=== PATIENT | male | born 1945 | race African-American/Black ===

== ENCOUNTER → 2016-12-05 | Outpatient (CLI) | payer MEDICARE, OTHER ==
[~2016-12-05] MED LIST: CARB1TAB2 PO; CHOL100013 PO; FURO-69 PO; METF500T4 PO; POTA10TA PO; TEST200V3 IM; TRAM50TA PO; TRIA1CAP3 PO
[2016-12-05 09:04] LABS: BILIRUBIN,URINE NEGATIVE (NEG); GLUCOSE,URINE NEGATIVE (NEG); NITRITE,URINE NEGATIVE (NEG); PH,URINE 5.5; PROTEIN,URINE NEGATIVE (NEG-TRACE); UROBILINOGEN,URINE 0.2 mg/dL (0.2 mg/dL)
[2016-12-05 09:25] LABS: BASO % 1 % (0-3); EOS % 1 % (0-3); HEMATOCRIT 36.9 % (39.0-53.0); HEMOGLOBIN 12.2 g/dL (13.0-17.5); LYMPH # 0.9 x10^3/uL (1.0-4.8); LYMPH % 21 % (24-48); MEAN CORPUSCULAR HEMOGLOBIN 27 pg (25-35); MEAN CORPUSCULAR HGB CONC 33 g/dL (31-37); MEAN CORPUSCULAR VOLUME 83 fL (79-100); MONO % 8 % (0-9); NEUT % 69 % (31-73); PLATELET COUNT 228 x10^3/uL (140-400); RED BLOOD COUNT 4.44 x10^6/uL (4.30-5.70); RED CELL DISTRIBUTION WIDTH 16.6 % (11.5-14.5); WHITE BLOOD COUNT 4.3 x10^3/uL (4.0-11.0)
[2016-12-05 09:28] LABS: BACTERIA,URINE FEW /HPF (0-FEW); SQUAMOUS EPITHELIAL CELL,UR OCC /LPF
[2016-12-05 09:34] LABS: ALBUMIN 3.7 g/dL (3.4-5.0); CALCIUM 9.4 mg/dL (8.5-10.1); CREATININE 1.2 mg/dL (0.7-1.3); GFR 71.8; POTASSIUM 4.3 mmol/L (3.5-5.1)
[2016-12-05 09:41] LABS: PROTHROMBIN TIME PATIENT 12.8 SEC (11.7-14.0)
--- NOTE | 2016-12-05 13:02 | EKG ---
[facility] [address] [place] [address] Test Date: 2016-12-05 Test Time: 12:59:43 Pat Name: SHANA FARRELL Department: Room: Gender: M Crisis Nurse: LORA : 1945 Requested By: ERAN THURSTON Order Number: [id number] Reading MD: Stephie Jones Measurements Intervals [place] Rate: 81 P: 90 ID: 160 QRS: 15 QRSD: 72 T: 34 QT: 348 QTc: 405 Interpretive Statements SINUS RHYTHM NORMAL ECG RI6.01 No previous ECG available for comparison Electronically Signed On 12-06-2016 20:17:13 CDT by Stephie Jones
--- NOTE | 2016-12-05 15:36 | RAD ---
Indication preop. Frontal and lateral views of the chest were obtained. No prior imaging of the chest is available. The heart and pulmonary vessels appear normal. The mediastinum has a normal appearance. The lungs are clear. IMPRESSION: No acute or significant finding in the chest
== END | disposition home or self-care (01) ==
LOC: SURGPAT 14:23
PROVIDERS: ATTEND Orthopaedic Surgery Sports Medicine
DX: Z01.818 Encounter for other preprocedural examination (principal); I10 Essential (primary) hypertension; R07.9 Chest pain, unspecified
CPT/HCPCS: 36415; 71020; 80048; 81001; 82040; 83036; 85025; 85610; 85651; 85730; 87086; 87641; 93005

== ENCOUNTER 2016-12-19 05:44 | Inpatient (IN) | payer MEDICARE, OTHER ==
[2016-12-19] VITALS (9 sets, daily range): BP systolic 108–131; BP diastolic 66–75
[~2016-12-19] VITALS: Ht 177.8 cm; Wt 72.6 kg
[2016-12-19] MEDS ORDERED: MORPHINE SULFATE 5 MG, KETOROLAC 30 MG, ROPIVacaine 0.5% PF 60 ML, EPINEPHrine 0.5 MG i... INT ART ONE ×5 (06:00)
[2016-12-19] MEDS ORDERED: TRANEXAMIC ACID 1,000 MG in IV NORMAL SALINE 50ML 50 ML INJ ONE ×2 (06:00→08:00)
[2016-12-19] MEDS ORDERED: BACITRACIN 50,000 UNIT in IV NORMAL SALINE 1000ML BAG 1,000 ML IRR ONE (06:00)
[2016-12-19] MEDS ORDERED: ceFAZolin 2GM PREMIX 2 GM/50 ML BAG IV ONE (06:30)
[2016-12-19] MEDS ORDERED: HYDROcodone/APAP 7.5/325MG 1 TAB TABLET PO ONE (07:00)
[2016-12-19] MEDS ORDERED: MELOXICAM 7.5 MG TABLET PO ONE (07:00)
[2016-12-19] MEDS ORDERED: fentaNYL PF VIAL 100 MCG/2 ML VIAL ONE (07:17)
[2016-12-19] MEDS ORDERED: ROCURONIUM 100 MG/10 ML VIAL. ONE (07:17)
[2016-12-19] MEDS: IV RINGERS,LACTATED 1000ML 1,000 ML IV SCH ×2 (07:20→10:13)
[2016-12-19] MEDS ORDERED: MIDAZOLAM HCL/PF 2 MG/2 ML VIAL. IV PRN (07:30)
[2016-12-19] MEDS ORDERED: fentaNYL PF VIAL 100 MCG/2 ML VIAL IV PRN ×3 (07:30→07:45)
[2016-12-19] MEDS ORDERED: LIDOCAINE 1% PF 2 ML VIAL. ID PRN (07:30)
[2016-12-19] MEDS: IV DEXTROSE 5 %-0.45 % NACL 1,000 ML IV SCH ×2 (07:32→21:15)
--- NOTE | 2016-12-19 07:38 | PDOC ---
BRIEF OPERATIVE NOTE Date: Dec 19, 2016 Pre-Op Diagnosis L hip DJD Post-Op Diagnosis same Procedure Performed L GREGORY Surgeon Joselin Ornamental Iron Worker Jason Anesthesiologist Alcides Anesthesia Type: General, Local Blood Loss 250mL Complications none ERAN THURSTON II, MD Dec 19, 2016 07:38
[2016-12-19 07:44] LABS: PROTHROMBIN TIME PATIENT 12.9 SEC (11.7-14.0)
[2016-12-19] MEDS ORDERED: ZOLPIDEM 5 MG TABLET. PO PRN (07:45)
[2016-12-19] MEDS ORDERED: PROCHLORPERAZINE 10 MG/2 ML VIAL. IV PRN (07:45)
[2016-12-19] MEDS ORDERED: MORPHINE SULFATE 4 MG/ML DISP.SYRIN. IV PRN ×2 (07:45)
[2016-12-19] MEDS ORDERED: 0.9 % SODIUM CHLORIDE 10 ML DISP.SYRIN. IV PRN (07:45)
[2016-12-19] MEDS ORDERED: HYDROcodone/APAP 10/325 1 TAB TABLET PO PRN (07:45)
[2016-12-19] MEDS ORDERED: METOCLOPRAMIDE HCL 10 MG/2 ML VIAL. IV PRN (07:45)
[2016-12-19] MEDS ORDERED: diphenhydrAMINE 50 MG/ML VIAL IV PRN (07:45)
[2016-12-19] MEDS ORDERED: MORPHINE SULFATE 10 MG/ML VIAL. IV PRN (07:45)
[2016-12-19] MEDS ORDERED: traMADol 50 MG TABLET PO PRN ×2 (07:45)
[2016-12-19] MEDS ORDERED: oxyCODONE/APAP 7.5/325 1 TAB TABLET PO PRN (07:45)
[2016-12-19] MEDS ORDERED: MORPHINE SULFATE 2 MG/ML DISP.SYRIN. IV PRN (07:45)
[2016-12-19] MEDS ORDERED: DEXTROSE 50% 25 GM / 50ML DISP.SYRIN. IV PRN (07:45)
[2016-12-19] MEDS ORDERED: PROCHLORPERAZINE 5 MG TABLET. PO PRN (07:45)
[2016-12-19] MEDS ORDERED: ACETAMINOPHEN 325 MG TABLET. PO PRN (07:45)
[2016-12-19] MEDS ORDERED: CALCIUM CARBONATE 500 MG TAB.CHEW PO PRN (07:45)
[2016-12-19] MEDS: INSULIN ASPART 300 UNITS/3 ML INSULN.PEN SQ SCH ×3 (08:00→16:54)
[2016-12-19] MEDS: FERROUS SULFATE 325 MG TABLET. PO SCH ×2 (08:00→16:53)
[2016-12-19] MEDS ORDERED: GLYCOPYRROLATE 1 MG/5 ML VIAL. ONE (08:00)
[2016-12-19] MEDS ORDERED: NEOSTIGMINE METHYLSULFATE 5 MG/5 ML SYRINGE. ONE (08:25)
[2016-12-19] MEDS ORDERED: PROPOFOL 20 ML IV ONE (08:27)
[2016-12-19] MEDS ORDERED: LIDOCAINE 2% PF Vial for OR 5 ML VIAL. ONE (08:27)
[2016-12-19] MEDS ORDERED: ONDANSETRON PF 4 MG/2 ML VIAL. ONE (08:28)
[2016-12-19] MEDS ORDERED: PHENYLEPHRINE in 0.9% NACL PF 1 MG/10 ML DISP.SYRIN. IV ONE (08:28)
[2016-12-19] MEDS ORDERED: SEVOFLURANE > 120 MINUTES. IH ONE (08:46)
[2016-12-19] MEDS ORDERED: SEVOFLURANE 31 TO 60 MINUTES. IH ONE (08:46)
[2016-12-19] MEDS ORDERED: TESTOSTERONE CYPIONATE 200 MG/ML VIAL. IM SCH (09:00)
[2016-12-19] MEDS: MULTIVITAMIN with MINERAL TABLET. PO SCH (09:00)
[2016-12-19] MEDS: fentaNYL PF VIAL 100 MCG/2 ML VIAL IV PRN ×3 (10:08→10:54)
--- NOTE | 2016-12-19 10:20 | OP ---
DATE OF SURGERY: 12/19/2016 SURGEON: Sam Thurston MD WIRE SPRING RELAY ADJUSTER: Damon Gomez. PREOPERATIVE DIAGNOSIS: Advanced left hip primary degenerative joint disease. POSTOPERATIVE DIAGNOSIS: Advanced left hip primary degenerative joint disease. PROCEDURE PERFORMED: Left total hip arthroplasty. COMPONENTS INSERTED: 1. Fitzpatrick and Nephew, 52 mm R3 acetabular component with a 20-degree posteriorly directed acetabular liner. 2. Size 5 standard Anthology femoral component with a 36 cobalt chrome -3 femoral head. BLOOD LOSS: 250 mL. COMPLICATIONS: None. REASON FOR PROCEDURE: The patient is a very pleasant 71-year-old gentleman who had been seen and followed in my outpatient orthopedic surgery clinic. His clinical and radiographic diagnosis were consistent with the above preoperative diagnosis and after failing conservative therapies and a discussion of the risks, benefits, and alternatives, he elected to proceed with the above surgery. ANESTHESIA: General. DESCRIPTION OF PROCEDURE: The patient was greeted in the preoperative area by myself where the correct extremity was marked and verified. He was taken to the operative suite and his antibiotics were started en route. Once in the OR, he was transferred gently supine in the OR table and underwent successful induction of general anesthetic. We then laid him in the lateral decubitus position with his left side up and all down pressure points were padded. We used an axillary roll. He was secured to the bed with the hip positioning device. After this, we proceeded to prep and drape the left lower extremity in our usual sterile fashion and conducted our standard preoperative timeout. I then palpated, marked the surface anatomy and made my standard posterolateral skin incision and dissected subcutaneous tissue with electrocautery and identified the fascia. I used a Woods elevator to sweep aside some of the subcutaneous tissue from the fascia for later identification and repair. Fascia was then incised in line within the skin incision. I then had the hip abducted and padded Lan stand and swept aside bursal tissue and took down the quadratus and piriformis and tagged the piriformis for later repair. I identified the hip capsule and incised this in a Z-plasty type incision and then tagged the ends of this for later repair as well. I was unable to dislocate the femoral head. He had a large amount of osteophytes and no visible cartilage. I then palpated and marked reproducible spots on his greater and lesser trochanter and center of his femoral head and measured for length and offset. I then placed 2 Homans' around his neck palpated for his lesser again and marked on his femoral neck with electrocautery for my neck cut about 1 cm proximal to the lesser trochanter and then made my neck cut. I delivered the bony remnants from the operative field and then inspected the acetabulum. He had a large amount of osteophytes posteriorly. I used a curved osteotome and rongeur to take these down. I then removed the soft tissues from the floor or fossa of the acetabulum and I identified the transverse acetabular ligament. I placed my anterior and posterior acetabular retractors and began reaming with a 44 up to 52 which gave a good circumferential fit and fill. He had good bleeding bony bed. I then impacted my cup after irrigating out the operative field using a strip [place]ne anatomy and the cross bar was referenced. After this, I ensured that it was fully seated and then placed a single screws posterior column which had excellent purchase. I then irrigated out the operative field again and impacted my acetabular liner into position ensuring circumferential engagement. After this, I removed my anterior and posterior acetabular retractors and delivered the proximal femur into the operative field and then used my proximal femoral elevator. I used a joeie cutting osteotome laterally followed by a canal finding reamer followed by my lateralizing reamer. I then began broaching up with small size up to size 5, which gave good fill of his proximal femur. I then trialed various head and neck sizes and checked my measurements. I felt that the above combination best restored his offset and leg length. I reduced this with the trial components and then checked the stability and range of motion and was happy with all of this as well as his leg length. I then removed all trial components and impacted my [address] and then retrialed the 0 and -3. I was not able to get the 0 reduced. I therefore washed and dried the Robison taper region and impacted my cobalt chrome -[address] I then irrigated out the operative field dried out the cup and then reduced this hip. He had no impingement, good range of motion and I felt his leg lengths were appropriate. I then closed the capsule with simple interrupted #2 Ethibond. I then reapproximated the piriformis to his proximal femur through drill holes. I then repaired his quadratus with [id number] #2 Ethibond. I then injected my periarticular mixture into the natali-incisional area. I then closed the fascia with running #2 Quill. His subcutaneous tissue was closed with inverted interrupted 2-0 in a multilayered fashion. Skin was then closed with running 4-0 Monocryl in the subcuticular fashion. We then applied the Fitzpatrick and Nephew HIEN dressing. Prior to completion of wound closure, all counts were reported correct x 2. No complications. The patient tolerated the surgery well. At the conclusion of surgery, he was laid supine and transferred gently supine to the recovery room cart. He was taken to PACU in stable and extubated condition. No complications. POSTOPERATIVE PLAN: To admit him to the floor to begin his rehab as well as receive IV pain medicine, postoperative DVT and antibiotic prophylaxis. SAM THURSTON MD DR: TOMAS/meagan JOB#: [id number] / [id number] TARUN
--- NOTE | 2016-12-19 10:41 | RAD ---
Hip x-rays Indication: Status post total left hip arthroplasty. Technique: AP pelvis and single view of the left hip joint Comparison: Previous x-ray from 11/22/2016 Findings: Interval total left hip arthroplasty. No periprostatic lucency to suggest hardware loosening. No acute fracture or dislocation. No heterotopic bone formation in the region of left hip joint. Severe right hip joint osteoarthritis. Vascular calcifications noted suggesting partial vascular disease. Degenerative disc disease in the visualized lumbar spine. Impression: 1. Interval left hip total arthroplasty without evidence of hardware loosening or fracture. 2. Severe right hip joint osteoarthritis.
[2016-12-19] MEDS ORDERED: FLU VACC QS2017-18 (36MOS+)/PF 0.5 ML SYRINGE. VAX IM ONE (13:00)
[2016-12-19] MEDS: SENNOSIDES/DOCUSATE 8.6/50MG TABLET. PO SCH (14:57)
[2016-12-19] MEDS: CARBIDOPA/LEVODOPA 25/100MG TABLET PO SCH ×2 (14:57→21:00)
[2016-12-19] MEDS: FUROSEMIDE 20 MG TABLET PO SCH (14:58)
[2016-12-19] MEDS ORDERED: WARFARIN 7.5 MG TABLET. PO ONE (16:00)
[2016-12-19] MEDS: metFORMIN 500 MG TABLET PO SCH (16:52)
[2016-12-19] MEDS: oxyCODONE/APAP 5/325 1 TAB TABLET PO PRN (16:53)
[2016-12-19] MEDS: HYDROcodone/APAP 7.5/325MG 1 TAB TABLET PO PRN ×2 (19:45→23:40)
[2016-12-19] MEDS: CELECOXIB 200 MG CAPSULE. PO SCH (21:00)
[2016-12-20 02:30] VITALS: BP 124/60
[2016-12-20] MEDS: IV DEXTROSE 5 %-0.45 % NACL 1,000 ML IV SCH ×2 (03:32→11:42)
[2016-12-20 03:45] LABS: HEMATOCRIT 29.7 % (39.0-53.0); HEMOGLOBIN 9.7 g/dL (13.0-17.5)
[2016-12-20 04:01] LABS: INR 1.2 (0.8-1.1); PROTHROMBIN TIME PATIENT 14.2 SEC (11.7-14.0)
[2016-12-20] MEDS ORDERED: MAGNESIUM HYDROXIDE 2,400 MG/30 ML ORAL.SUSP. PO PRN (06:00)
[2016-12-20 06:33] VITALS: BP 100/61
[2016-12-20] MEDS: metFORMIN 500 MG TABLET PO SCH ×2 (07:53→16:30)
[2016-12-20] MEDS: MULTIVITAMIN with MINERAL TABLET. PO SCH (07:53)
[2016-12-20] MEDS: FERROUS SULFATE 325 MG TABLET. PO SCH ×2 (07:53→16:30)
[2016-12-20] MEDS: CELECOXIB 200 MG CAPSULE. PO SCH ×2 (07:53→21:01)
[2016-12-20] MEDS: SENNOSIDES/DOCUSATE 8.6/50MG TABLET. PO SCH (07:53)
[2016-12-20] MEDS: POTASSIUM CHLORIDE 10 MEQ TABLET.ER. PO SCH (07:55)
[2016-12-20 07:56] VITALS: BP 111/67
[2016-12-20] MEDS: CARBIDOPA/LEVODOPA 25/100MG TABLET PO SCH ×3 (07:59→21:01)
[2016-12-20] MEDS: INSULIN ASPART 300 UNITS/3 ML INSULN.PEN SQ SCH ×3 (08:00→16:32)
--- NOTE | 2016-12-20 08:11 | PDOC ---
ORTHO PROGRESS NOTES Subjective Pain doing ok. No CP, SOB, N/V Vitals Vital Signs Date Time Temp Pulse Resp B/P (MAP) Pulse Ox O2 Delivery O2 Flow Rate FiO2 12/20/16 07:56 102 20 111/67 (82) Room Air 12/20/16 06:33 98.4 95 98.4 12/19/16 10:24 10.0 Labs Laboratory Tests Test 12/19/16 06:59 12/19/16 07:00 12/19/16 10:44 12/19/16 16:27 Glucose (Fingerstick) 111 mg/dL (70-99) 114 mg/dL (70-99) 116 mg/dL (70-99) Prothrombin Time 12.9 SEC (11.7-14.0) Prothromb Time International Ratio 1.0 (0.8-1.1) Activated Partial Thromboplast Time 26 SEC (24-38) Test 12/19/16 21:05 12/20/16 03:25 12/20/16 06:42 Glucose (Fingerstick) 124 mg/dL (70-99) 129 mg/dL (70-99) Hemoglobin 9.7 g/dL (13.0-17.5) Hematocrit 29.7 % (39.0-53.0) Mean Corpuscular Hemoglobin Concent 33 g/dL (31-37) Prothrombin Time 14.2 SEC (11.7-14.0) Prothromb Time International Ratio 1.2 (0.8-1.1) Laboratory Tests Test 12/19/16 10:44 12/19/16 16:27 12/19/16 21:05 12/20/16 03:25 Glucose (Fingerstick) 114 mg/dL (70-99) 116 mg/dL (70-99) 124 mg/dL (70-99) Hemoglobin 9.7 g/dL (13.0-17.5) Hematocrit 29.7 % (39.0-53.0) Mean Corpuscular Hemoglobin Concent 33 g/dL (31-37) Prothrombin Time 14.2 SEC (11.7-14.0) Prothromb Time International Ratio 1.2 (0.8-1.1) Test 12/20/16 06:42 Glucose (Fingerstick) 129 mg/dL (70-99) Notes A and A in bed Incision has small amount of bloody drainage normal motor and sensation distally Assessment and Plan PT/OT likely HHC upon D/C ERAN THURSTON II, MD Dec 20, 2016 08:11
[2016-12-20] MEDS: HYDROcodone/APAP 7.5/325MG 1 TAB TABLET PO PRN (08:58)
[2016-12-20] MEDS: FUROSEMIDE 20 MG TABLET PO SCH (08:59)
[2016-12-20] MEDS: TRIAMTERENE/HCTZ 37.5/25MG TABLET. PO SCH (09:00)
[2016-12-20 10:28] VITALS: BP 104/58
[2016-12-20] MEDS: oxyCODONE/APAP 5/325 1 TAB TABLET PO PRN ×2 (13:09→17:00)
[2016-12-20] MEDS ORDERED: BISACODYL 10 MG SUPP.RECT. PR PRN (16:00)
[2016-12-20] MEDS ORDERED: WARFARIN 5 MG TABLET. PO ONE (16:00)
[2016-12-20 18:21] VITALS: BP 116/62
[2016-12-20] MEDS ORDERED: INFLUENZA VAX SCREEN BY RX. MC ONE (21:00)
[2016-12-21] MEDS: oxyCODONE/APAP 5/325 1 TAB TABLET PO PRN ×4 (00:18→16:39)
[2016-12-21 06:15] VITALS: BP 99/63
[2016-12-21 06:32] LABS: HEMATOCRIT 26.4 % (39.0-53.0)
[2016-12-21 06:53] LABS: INR 1.7 (0.8-1.1); PROTHROMBIN TIME PATIENT 19.3 SEC (11.7-14.0)
[2016-12-21] MEDS: INSULIN ASPART 300 UNITS/3 ML INSULN.PEN SQ SCH ×3 (08:00→17:00)
[2016-12-21] MEDS: SENNOSIDES/DOCUSATE 8.6/50MG TABLET. PO SCH (08:31)
[2016-12-21] MEDS: CARBIDOPA/LEVODOPA 25/100MG TABLET PO SCH ×2 (08:31→15:57)
[2016-12-21] MEDS: FERROUS SULFATE 325 MG TABLET. PO SCH ×2 (08:32→17:04)
[2016-12-21] MEDS: CELECOXIB 200 MG CAPSULE. PO SCH (08:32)
[2016-12-21] MEDS: POTASSIUM CHLORIDE 10 MEQ TABLET.ER. PO SCH (08:32)
[2016-12-21] MEDS: MULTIVITAMIN with MINERAL TABLET. PO SCH (08:32)
[2016-12-21] MEDS: metFORMIN 500 MG TABLET PO SCH ×2 (08:32→17:04)
[2016-12-21] MEDS: FUROSEMIDE 20 MG TABLET PO SCH (08:33)
[2016-12-21] MEDS: TRIAMTERENE/HCTZ 37.5/25MG TABLET. PO SCH (09:00)
--- NOTE | 2016-12-21 11:54 | DISCH ---
DISCHARGE INSTRUCTIONS Condition on Discharge Condition on Discharge: Stable Activity After Discharge Activity Instructions for Disc: Activity as tolerated Bathing Instructions: Shower-keep dressing dry Weight Bearing Status after Di: As tolerated Diet after Discharge Diet after Discharge: Regular Wound Incision Care Wound/Incision Care: Ice to area for comfort, Do not change dressing Community/Resources/Services Services at Discharge: Home Health Care Services Contacting the after DC Call your doctor for: Concerns you may have Follow-Up Follow up with: Joselin in 2wks ERAN THURSTON II, MD Dec 21, 2016 11:54
--- NOTE | 2016-12-21 11:57 | DISCH ---
DISCHARGE WITH HOME HEALTH DISCHARGE INFORMATION: Discharge Date: Dec 21, 2016 Final Diagnosis: L GREGORY Condition on Discharge: Stable HOME HEALTH: Face to Face: I certify this patient is under my care and that I, or a nurse practitioner or physician's registered dental assistant rda working with me, had a face to face encounter that meets the physician face to face encounter requirements with this patient on []. Medical Condition(s): S/P Joint Replacement Long Term For: Other: (INR draws) Physical Therapy For: Evalulation/Treatment Occupational Therapy For: Evaluation/Treatment Patient meets Homebound Statu: Poor coordination w/ amb. FOLLOW-UP: Follow up with: Joselin in 2wks CERTIFICATION STATEMENT: Certification Statement: Certification Statement: Based on the above finding, I certify that this patient is confined to the home and needs intermittent long-term care, physical therapy and/or speech therapy, or continues to need occupational therapy.~ This patient is under my care, and I have initiated the establishment of the plan of care.~ This patient will be followed by myself or a community physician who will periodically review the plan of care. ERAN THURSTON II, MD Dec 21, 2016 11:56
--- NOTE | 2016-12-21 11:57 | PDOC ---
ORTHO PROGRESS NOTES Subjective Pain doing ok. No other complaints Vitals Vital Signs Date Time Temp Pulse Resp B/P (MAP) Pulse Ox O2 Delivery O2 Flow Rate FiO2 12/21/16 06:46 16 98 Room Air 12/21/16 06:15 98.0 98 99/63 (75) 98.0 Labs Laboratory Tests Test 12/19/16 16:27 12/19/16 21:05 12/20/16 03:25 12/20/16 06:42 Glucose (Fingerstick) 116 mg/dL (70-99) 124 mg/dL (70-99) 129 mg/dL (70-99) Hemoglobin 9.7 g/dL (13.0-17.5) Hematocrit 29.7 % (39.0-53.0) Mean Corpuscular Hemoglobin Concent 33 g/dL (31-37) Prothrombin Time 14.2 SEC (11.7-14.0) Prothromb Time International Ratio 1.2 (0.8-1.1) Test 12/20/16 11:37 12/20/16 16:08 12/21/16 05:55 12/21/16 07:00 Glucose (Fingerstick) 108 mg/dL (70-99) 108 mg/dL (70-99) 95 mg/dL (70-99) Hemoglobin 9.0 g/dL (13.0-17.5) Hematocrit 26.4 % (39.0-53.0) Mean Corpuscular Hemoglobin Concent 34 g/dL (31-37) Prothrombin Time 19.3 SEC (11.7-14.0) Prothromb Time International Ratio 1.7 (0.8-1.1) Test 12/21/16 11:37 Glucose (Fingerstick) 92 mg/dL (70-99) Laboratory Tests Test 12/20/16 16:08 12/21/16 05:55 12/21/16 07:00 12/21/16 11:37 Glucose (Fingerstick) 108 mg/dL (70-99) 95 mg/dL (70-99) 92 mg/dL (70-99) Hemoglobin 9.0 g/dL (13.0-17.5) Hematocrit 26.4 % (39.0-53.0) Mean Corpuscular Hemoglobin Concent 34 g/dL (31-37) Prothrombin Time 19.3 SEC (11.7-14.0) Prothromb Time International Ratio 1.7 (0.8-1.1) Notes A and A in chair remains NVI Assessment and Plan home with [facility] ERAN THURSTON II, MD Dec 21, 2016 11:57
--- NOTE | 2016-12-21 13:57 | PATHOLOGY ---
PATHOLOGY REPORT * * * * * * * * FINAL DIAGNOSIS: Femoral head, left total hip arthroplasty: - Advanced degenerative arthritis with focal subarticular cystic degeneration. COMMENT: There is no evidence of malignancy. (JPM:mml; 12/21/2016) REPORT ELECTRONICALLY SIGNED BY: Agustin Dasilva M.D. DATE/TIME: 12/21/2016 13:46 * * * * * * * * GROSS PATHOLOGY: Received in formalin labeled "Shana Farrell, left hip bone and tissue," is a femoral head measuring 5.4 x 5.4 x 7.2 cm in greatest dimensions. The articular surface is light mcdonald and irregular in contour displaying evidence of eburnation, as well as osteophytic lipping. Sectioning the bone reveals white-mcdonald cut surfaces. Party Coordinator tissue is submitted in cassette A1, following decalcification. (CAA; 12/20/2016) INITIAL CPT CODE(S): A; 15148, 58723 Professional services performed [place] [facility] [place] [address] Technical services performed by [facility] at [address] [place] [address]. SPECIMEN(S) RECEIVED: A.Left hip bone and tissue CLINICAL HISTORY: DJD left hip PATIENT: SHANA FARRELL /AGE: 7 1945 (Age: 71) PATIENT #: [id number] ALT CASE #: SPECIMEN COLLECTION DATE: 12/19/2016 SPECIMEN RECEIVED DATE: 12/19/2016 [facility] - [address] [place] [address] - PHONE: [phone] * * * END OF REPORT * * *
[2016-12-21] MEDS ORDERED: WARFARIN 3 MG TABLET. PO ONE (14:00)
[2016-12-21] MEDS ORDERED: OXYC-323 PO (14:47)
[2016-12-21 17:20] VITALS: BP 106/68
--- NOTE | 2016-12-29 14:54 | PDOC3 ---
Discharge Summary Visit Information Date of Admission: Dec 19, 2016 Date of Discharge: Dec 21, 2016 Admitting Diagnosis: advanced left hip primary degenerative joint disease Brief Hospital Course Allergies Allergies Coded Allergies Type Severity Reaction Last Updated Verified No Known Drug Allergies 12/19/16 No Brief Hospital Course Mr. Reyes is a 71 old male who presented to my outpatient orthopedic surgery clinic with complaints of severe and progressive pain that failed conservative therapies including injections. We had a discussion of the risks, benefits, alternatives to total hip arthroplasty and he elected to proceed. He tolerated surgery well cover well from anesthesia in the PACU. He was then taken to the joint Center for care and observation. He did receive PT, OT, DVT and antibiotic prophylaxis. He recovered well from surgery and remained hemodynamically stable and afebrile throughout the hospitalization. Pain was controlled on oral pain medicine at the time of discharge. Good progress was made with therapy throughout the hospitalization, and activities of daily living were accomplished by the patient. The incision was clean dry and intact and the operative extremity had normal motor and sensation. Discharge Information Condition at Discharge: Stable Follow Up: Weeks Disposition/Orders: D/C to Home, D/C to Home w/ HH Scheduled Carbidopa/Levodopa (Sinemet 25-100 Mg Tablet), 50-200 MG PO TID, (Reported) Cholecalciferol (Vitamin D3) (Vitamin D), 50,000 UNIT PO Q4WK, (Reported) Furosemide (Lasix), 20 MG PO DAILY, (Reported) Metformin Hcl (Metformin Hcl), 1 TAB PO BID, (Reported) Potassium Chloride (K-Tab), 10 MEQ PO DAILY, (Reported) Testosterone Cypionate (Testosterone Cypionate), 200 MG IM Q4WK, (Reported) Tramadol Hcl (Tramadol Hcl), 1 TAB PO PRN Q6HRS, (Reported) Triamterene/Hydrochlorothiazid (Triamterene-Hctz 37.5-25 Mg Cp), 1 CAP PO DAILY, (Reported) Scheduled PRN Oxycodone/Apap 5-325 (Percocet 5-325 Mg Tablet), 1 TAB PO PRN Q3HRS PRN for PAIN , (Reported) Patient Instructions Patient Instructions He will be discharged home. Home health care has been set up. We will get him started on outpatient therapy as soon as we are able. The patient will be on Coumadin for a month. He can weight-bear as tolerated. Worrisome signs and symptoms that should prompt a phone call to my office were discussed. We'll see him back in 2 weeks, sooner should a problem arise. ERAN THURSTON II, MD Dec 29, 2016 14:54
== END 2016-12-21 17:30 | disposition home health service (06) | DRG 470 ==
LOC: OPSVCIP 05:44 → 4 SOUTHEST 11:24
PROVIDERS: ADMIT Orthopaedic Surgery Sports Medicine; ATTEND Orthopaedic Surgery Sports Medicine
PROC: 0SRB0JZ Replacement of Left Hip Joint with Synthetic Substitute, Open Approach (ICD-10-PCS; principal; 2016-12-19 07:30)
DX: M16.0 Bilateral primary osteoarthritis of hip (principal); E11.22 Type 2 diabetes mellitus with diabetic chronic kidney disease; G20 Parkinson's disease; E11.9 Type 2 diabetes mellitus without complications; E29.1 Testicular hypofunction; N18.3 Chronic kidney disease, stage 3 (moderate); I87.2 Venous insufficiency (chronic) (peripheral); E78.5 Hyperlipidemia, unspecified; Z79.4 Long term (current) use of insulin; Z87.442 Personal history of urinary calculi; Z83.3 Family history of diabetes mellitus; Z82.49 Family history of ischemic heart disease and other diseases of the circulatory system; Z87.891 Personal history of nicotine dependence
CPT/HCPCS: 36415; 72170; 82962; 85014; 85018; 85610; 85730; 86850; 86900; 86901; 88304; 88311; 90686; J0171; J0690; J1815; J1885; J2270; J2370; J2405; J2704; J2710; J2795; J3010; J3490; J7030; J7120; 97110; 97116; 97150; 97530; 97535; J2001

== ENCOUNTER → 2017-01-16 | Outpatient (CLI) | payer MEDICARE, OTHER ==
[2016-12-21 17:20] VITALS: BP 106/68
[~2017-01-16] MED LIST changes: +OXYC-323 PO
[2017-01-16 09:35] LABS: HEMATOCRIT 34.1 % (39.0-53.0); HEMOGLOBIN 11.4 g/dL (13.0-17.5); RED BLOOD COUNT 4.07 x10^6/uL (4.30-5.70); RED CELL DISTRIBUTION WIDTH 16.8 % (11.5-14.5); WHITE BLOOD COUNT 4.4 x10^3/uL (4.0-11.0)
[2017-01-16 09:55] LABS: CHOLESTEROL/HDL RATIO 1.7
== END | disposition home or self-care (01) ==
LOC: LAB 09:07
PROVIDERS: ATTEND Family Medicine
DX: E78.5 Hyperlipidemia, unspecified (principal); E11.22 Type 2 diabetes mellitus with diabetic chronic kidney disease
CPT/HCPCS: 36415; 80061; 85027

== ENCOUNTER → 2018-07-23 | Outpatient (CLI) | payer MEDICARE, OTHER ==
[~2018-07-23] MED LIST changes: +ERGO500027 PO; +FERR325T14 PO; +METF500T16 PO; -METF500T4 PO; -OXYC-323 PO; +OXYC1TAB15 PO; +WARF3TAB50 PO
[2018-07-23 15:14] LABS: BILIRUBIN,URINE NEGATIVE (NEG); CLARITY,URINE CLEAR; COLOR,URINE YELLOW; NITRITE,URINE NEGATIVE (NEG); PROTEIN,URINE NEGATIVE (NEG-TRACE)
[2018-07-23 15:19] LABS: BACTERIA,URINE 0 /HPF (0-FEW); RBC,URINE 0 /HPF (0-2); WBC,URINE RARE /HPF (0-4)
[2018-07-23 15:30] LABS: BASO % 1 % (0-3); EOS % 1 % (0-3); HEMATOCRIT 37.5 % (39.0-53.0); HEMOGLOBIN 12.4 g/dL (13.0-17.5); LYMPH % 30 % (24-48); MEAN CORPUSCULAR HEMOGLOBIN 28 pg (25-35); MEAN CORPUSCULAR HGB CONC 33 g/dL (31-37); MEAN CORPUSCULAR VOLUME 85 fL (79-100); MONO # 0.3 x10^3/uL (0.0-1.1); MONO % 9 % (0-9); NEUT # 1.9 x10^3uL (1.8-7.7); NEUT % 59 % (31-73); PLATELET COUNT 187 x10^3/uL (140-400); RED BLOOD COUNT 4.44 x10^6/uL (4.30-5.70); RED CELL DISTRIBUTION WIDTH 15.3 % (11.5-14.5); WHITE BLOOD COUNT 3.3 x10^3/uL (4.0-11.0)
[2018-07-23 15:49] LABS: PROTHROMBIN TIME PATIENT 13.1 SEC (11.7-14.0)
[2018-07-23 15:56] LABS: ALBUMIN 3.5 g/dL (3.4-5.0); CALCIUM 9.6 mg/dL (8.5-10.1); CREATININE 1.2 mg/dL (0.7-1.3); GFR 71.6; POTASSIUM 4.1 mmol/L (3.5-5.1)
--- NOTE | 2018-07-23 16:22 | EKG ---
[facility] [address] [place] [address] Test Date: 2018-07-23 Test Time: 15:46:17 Pat Name: SHANA FARRELL Department: Room: Gender: Marina Porter: : 1945 Requested By: ERAN THURSTON Order Number: [id number] Reading MD: Jesse Acevedo Measurements Intervals [place] Rate: 71 P: 90 HI: 168 QRS: 9 QRSD: 74 T: 35 QT: 356 QTc: 387 Interpretive Statements SINUS RHYTHM NO SPECIFIC ECG ABNORMALITIES Electronically Signed On 07-27-2018 14:18:30 CDT by Jesse Acevedo
--- NOTE | 2018-07-23 16:35 | RAD ---
Chest, 2 views, 07/23/2018: HISTORY: Preop evaluation for hip surgery The heart size and pulmonary vascularity are normal. The lungs are clear. There is no evidence of pleural fluid. IMPRESSION: No acute cardiopulmonary abnormality is detected. Electronically signed by: Taye Nielsen MD (07/23/2018 4:32 PM) [facility]
== END | disposition home or self-care (01) ==
LOC: SURGPAT 14:25
PROVIDERS: ATTEND Orthopaedic Surgery Sports Medicine
DX: Z01.818 Encounter for other preprocedural examination (principal); M16.11 Unilateral primary osteoarthritis, right hip
CPT/HCPCS: 36415; 71046; 80048; 81001; 82040; 82306; 83036; 85025; 85610; 85651; 85730; 87641; 93005

== ENCOUNTER 2018-08-06 05:47 | Inpatient (IN) | payer MEDICARE, OTHER ==
[2018-08-06] VITALS (12 sets, daily range): BP systolic 114–146; BP diastolic 61–85
[~2018-08-06] VITALS: Ht 177.8 cm; Wt 83.9 kg
[~2018-08-06 05:47] MED LIST changes: -FERR325T14 PO; -WARF3TAB50 PO
[2018-08-06] MEDS ORDERED: TV=100ml MORPHINE 5 MG, KETOROLAC 30 MG, ROPIVacaine 0.5% PF 60 ML, EPINEPH... INT ART ONE ×5 (06:00)
[2018-08-06] MEDS ORDERED: MELOXICAM 7.5 MG TABLET PO PRN (06:00)
[2018-08-06] MEDS ORDERED: TRANEXAMIC ACID 1,000 MG in IV NS 50ML -- 1ST BAG INJ ONE (06:00)
[2018-08-06] MEDS ORDERED: HYDROcodone/APAP 7.5/325MG 1 TAB TABLET PO PRN (06:00)
[2018-08-06] MEDS ORDERED: MORPHINE SULFATE 2 MG/ML VIAL. IV PRN ×4 (07:00→07:30)
[2018-08-06] MEDS ORDERED: fentaNYL PF VIAL 100 MCG/2 ML VIAL IV PRN ×6 (07:00→07:30)
[2018-08-06] MEDS ORDERED: LIDOCAINE 1% PF 2 ML VIAL. ID PRN ×3 (07:00)
[2018-08-06] MEDS ORDERED: IV RINGERS,LACTATED 1000ML 1,000 ML IV SCH ×3 (07:00)
[2018-08-06] MEDS ORDERED: ONDANSETRON PF 4 MG/2 ML VIAL. IV PRN ×3 (07:00)
[2018-08-06] MEDS ORDERED: HYDROmorphone 2 MG/ML VIAL IV PRN ×3 (07:00)
[2018-08-06] MEDS ORDERED: PROCHLORPERAZINE 10 MG/2 ML VIAL. IV PRN ×3 (07:00)
[2018-08-06] MEDS ORDERED: ROCURONIUM 50 MG/5 ML VIAL. ONE (07:10)
[2018-08-06] MEDS ORDERED: ONDANSETRON PF 4 MG/2 ML VIAL. ONE (07:10)
[2018-08-06] MEDS ORDERED: DEXAMETHASONE SOD PHOS 4 MG/ML VIAL ONE (07:10)
[2018-08-06] MEDS ORDERED: LIDOCAINE 2% PF 5 ML VIAL. ONE (07:10)
[2018-08-06] MEDS ORDERED: PROPOFOL 20 ML IV ONE (07:10)
[2018-08-06] MEDS ORDERED: FAMOTIDINE 20 MG/2 ML VIAL ONE (07:10)
[2018-08-06] MEDS ORDERED: MIDAZOLAM HCL/PF 2 MG/2 ML VIAL. ONE (07:11)
[2018-08-06] MEDS ORDERED: fentaNYL PF VIAL 100 MCG/2 ML VIAL ONE ×3 (07:11→10:26)
[2018-08-06 07:29] LABS: PROTHROMBIN TIME PATIENT 12.8 SEC (11.7-14.0)
[2018-08-06] MEDS ORDERED: DEXTROSE 50% 25 GM / 50ML DISP.SYRIN. IV PRN (07:30)
[2018-08-06] MEDS ORDERED: PROCHLORPERAZINE 5 MG TABLET. PO PRN (07:30)
[2018-08-06] MEDS ORDERED: ZOLPIDEM 5 MG TABLET. PO PRN (07:30)
[2018-08-06] MEDS ORDERED: 0.9 % SODIUM CHLORIDE 10 ML DISP.SYRIN. IV PRN (07:30)
[2018-08-06] MEDS ORDERED: METOCLOPRAMIDE HCL 10 MG/2 ML VIAL. IV PRN (07:30)
[2018-08-06] MEDS ORDERED: diphenhydrAMINE 50 MG/ML VIAL IV PRN (07:30)
[2018-08-06] MEDS ORDERED: CALCIUM CARBONATE 500 MG TAB.CHEW PO PRN (07:30)
[2018-08-06] MEDS ORDERED: TRANEXAMIC ACID 1,000 MG in IV NS 50ML -- 2ND BAG INJ ONE (08:00)
[2018-08-06] MEDS ORDERED: NEOSTIGMINE METHYLSULFATE 5 MG/5 ML SYRINGE. ONE (08:51)
[2018-08-06] MEDS ORDERED: GLYCOPYRROLATE 1 MG/5 ML VIAL. ONE (08:51)
[2018-08-06] MEDS ORDERED: TESTOSTERONE CYPIONATE 200 MG IM SCH (09:00)
[2018-08-06] MEDS ORDERED: SEVOFLURANE 61 TO 120 MINUTES. IH ONE (09:16)
--- NOTE | 2018-08-06 09:19 | PDOC4 ---
Operative Note Operative Note Surgeon: Sam Thurston Asst.: Guillermo Morgan, advanced practice registered nurse who was necessary to assist with manipulating the leg and holding retractors as well as wound closure for this procedure Preoperative diagnosis: Advanced right hip primary degenerative joint disease Postoperative diagnosis: Same Procedure performed: right total hip arthroplasty Anesthesia: Gen. Findings: Advanced primary degenerative joint disease of right hip. Blood loss: 100 mL Complications: None Components inserted: Fitzpatrick and nephew 54 mm R3 shell with a 20 posteriorly directed liner, size 6 standard offset anthology stem with a 36+0 Oxinium head Reason for procedure: Patient is a very pleasant individual with severe progressive pain interfering with his activities of daily living and attributable to the above preoperative diagnosis. Clinical and radiographic examination were consistent with the above preoperative diagnosis and after discussion of the risks, benefits, and alternatives, taking into account his failure of conservative therapies, the patient elected to proceed with surgery. Description of procedure: Patient was greeted in the preoperative area by myself for the correct extremity was verified and marked. He was taken back to the operative suite and antibiotics were started as they were brought back. Once in the operative room, patient was transferred gently supine to the operating table and secured to the bed with all pressure points padded. Axillary roll was used. The down leg was padded at the fibular head and heel. Patient was secured the bed with our hip positioning devices. I then appreciated leg lengths in this position. After this, the operative extremity was prepped and draped in her usual sterile fashion including an Ioban [place]. We then proceeded to conduct our standard preoperative timeout. I then palpated and marked surface anatomy and oswaldo a line from my standard posterolateral skin incision. Skin was incised with a scalpel and subcutaneous tissue was dissected down the level of fascia with electrocautery. Bleeders were cauterized as they were encountered. Woods elevator was used to sweep aside adherent subcutaneous tissue for later identification and repair of the fascia. Fascia was then incised in line with the skin incision and the gluteus brianna was split bluntly in line with its fibers. There was abundant fibrotic tissue present and I excised some of this for exposure. After this, a lap was used to push bursal tissue posteriorly to identify the piriformis and quadratus, these were taken down, the piriformis was tagged for later repair. Our self-retaining retractor was in place. At this point, I identified the hip capsule incised in a T-type incision, tagging ends for later repair. The hip was dislocated. I then palpated and marked with electrocautery areas at the greater and lesser trochanters and center of the femoral head and I made measurements for length and offset. I then oswaldo a line on the neck about 1 cm proximal lesser trochanter and made my neck cut through this. The bony remnant was delivered from the operative field. We placed our acetabular retractors and inspected the acetabulum. I excised the soft tissues from the floor the acetabulum as well as the labrum. Osteophytes were taken down posteriorly. After this, we began reaming and reamed down until we encountered a punctate bleeding bony bed. The operative field and then thoroughly irrigated out. The cup was then impacted referencing grand traverse anatomy and the crossbar attachment. I had identified the transverse acetabular ligament. After this, I palpated for the posterior column and greater sciatic notch and referenced this to place a screw into the posterior column. The operative field was irrigated again and my polyethylene liner was then impacted in position and confirmed that it was fully seated on circumferential visualization. We then removed our acetabular retractors and used our proximal femoral elevator and repositioned the leg. I used the alisa cutting osteotome followed by canal finding reamer followed by lateralizing reamer. We then began broaching and broached to the above size and trialed different head and necks, using our measurements as a guide as well. The above sizes gave the best range of motion and stability. After this, the trial components were removed and the canal was thoroughly irrigated. I then impacted my femoral stem and position. We then re-trialed the head sizes and selected the above size. The hip was redislocated and the Robison taper region was washed and dried. The femoral head was then gently impacted in position and the acetabulum was inspected and irrigated to make sure was free of debris. After this, the hip was reduced. Excellent range of motion and stability were achieved. I was happy with the leg lengths. We then closed capsule with simple interrupted #2 Ethibond. Piriformis was reapproximated through drill holes. I then injected my periarticular mixture into the natali-incisional soft tissues below. Fascia was closed was running #2 Quill suture. Inverted interrupted 2-0 Vicryl in a multilayered fashion was used for subcutaneous tissue and running 3-0 Monocryl for skin. Prior to wound closure, all counts correct 2. No complications. At the conclusion, the hip region was cleansed and dried and our incisional wound vacuum was applied. Patient tolerated surgery well. At the conclusion, they were laid supine and transferred gently supine to the hospital bed and taken to PACU in a stable and extubated condition. Postoperative plan is to admit the patient to the joint center for DVT and antibiotic prophylaxis as well as to begin the rehabilitation and receive likely IV pain medicine. SAM THURSTON II, MD August 06, 2018 09:19
[2018-08-06] MEDS: fentaNYL PF VIAL 100 MCG/2 ML VIAL IV PRN ×3 (10:01→10:30)
--- NOTE | 2018-08-06 10:28 | RAD ---
Pelvis, 08/06/2018: HISTORY: Postop evaluation Bilateral total hip prostheses are in place in satisfactory positions. There is a surgical drain overlying the operative site laterally on the right. There is no evidence of a retained surgical instrument, needle or radiopaque sponge. Electronically signed by: Taye Nielsen MD (08/06/2018 10:25 AM) [facility]
--- NOTE | 2018-08-06 11:54 | NUR ---
Pt admitted from PACU. Arrived via bed with transportation. A&O X4 drowsy, VSS, C/O pain 8/10 denies nausea. IVF infusing. SCDs attached to pump. Frequent vitals started. Completed admission assessment. Water pitcher filled. Meal tray provided. Oriented to room and routines. Call light within reach. at bedside. Will continue to monitor.
[2018-08-06] MEDS: ONDANSETRON ODT 4 MG TAB.RAPDIS. PO SCH ×2 (12:00→16:48)
[2018-08-06] MEDS: ONDANSETRON PF 4 MG/2 ML VIAL. IV SCH ×2 (12:00→16:48)
[2018-08-06] MEDS ORDERED: IV NORMAL SALINE 1000ML BAG 1,000 ML IV SCH (12:00)
--- NOTE | 2018-08-06 12:17 | NUR ---
Cleared reassessments on EMAR from PACU. Non admin NS. LR still running.
[2018-08-06] MEDS: oxyCODONE IR 5 MG TABLET PO PRN (14:08)
[2018-08-06] MEDS: CARBIDOPA/LEVODOPA 25/100MG TABLET PO SCH ×2 (14:08→21:53)
[2018-08-06] MEDS ORDERED: WARFARIN 3 MG TABLET. PO ONE (16:00)
[2018-08-06] MEDS ORDERED: WARFARIN 7.5 MG TABLET. PO ONE (16:00)
[2018-08-06] MEDS: metFORMIN 500 MG TABLET PO SCH (16:45)
[2018-08-06] MEDS: FERROUS SULFATE 325 MG TABLET. PO SCH (16:45)
[2018-08-07 03:00] VITALS: BP 102/51
[2018-08-07] MEDS: ONDANSETRON ODT 4 MG TAB.RAPDIS. PO SCH ×2 (05:34)
[2018-08-07] MEDS: traMADol 50 MG TABLET PO SCH ×3 (05:34→17:14)
[2018-08-07] MEDS: ONDANSETRON PF 4 MG/2 ML VIAL. IV SCH ×2 (05:34)
[2018-08-07] MEDS ORDERED: MAGNESIUM HYDROXIDE 2,400 MG/30 ML ORAL.SUSP. PO PRN (06:00)
[2018-08-07 06:49] LABS: HEMATOCRIT 31.2 % (39.0-53.0); HEMOGLOBIN 10.7 g/dL (13.0-17.5)
[2018-08-07 06:53] LABS: PROTHROMBIN TIME PATIENT 15.7 SEC (11.7-14.0)
[2018-08-07 07:00] VITALS: BP 137/69
[2018-08-07] MEDS: CARBIDOPA/LEVODOPA 25/100MG TABLET PO SCH ×3 (08:36→20:49)
[2018-08-07] MEDS: POTASSIUM CHLORIDE 10 MEQ TABLET.ER. PO SCH (08:36)
[2018-08-07] MEDS: metFORMIN 500 MG TABLET PO SCH ×2 (08:36→17:14)
[2018-08-07] MEDS: MULTIVITAMIN with MINERAL TABLET. PO SCH (08:36)
[2018-08-07] MEDS: oxyCODONE IR 5 MG TABLET PO PRN (08:36)
[2018-08-07] MEDS: ACETAMINOPHEN 500 MG TABLET PO SCH ×3 (08:36→20:49)
[2018-08-07] MEDS: SENNOSIDES/DOCUSATE 8.6/50MG TABLET. PO SCH (08:36)
[2018-08-07] MEDS: FERROUS SULFATE 325 MG TABLET. PO SCH ×2 (08:36→17:14)
--- NOTE | 2018-08-07 08:42 | PDOC ---
ORTHO PROGRESS NOTES Subjective He feels like his pain is tolerable. No abdominal complaints. No chest pain or difficulty breathing. Vitals Vital Signs Date Time Temp Pulse Resp B/P (MAP) Pulse Ox O2 Delivery O2 Flow Rate FiO2 08/07/18 08:36 Room Air 08/07/18 05:34 97 08/07/18 03:00 98.2 66 18 102/51 (68) 98.2 08/06/18 10:01 10.0 Labs Laboratory Tests Test 08/06/18 06:38 08/06/18 10:10 08/06/18 11:04 08/06/18 17:01 Prothrombin Time 12.8 SEC (11.7-14.0) Prothromb Time International Ratio 1.0 (0.8-1.1) Activated Partial Thromboplast Time 26 SEC (24-38) Glucose (Fingerstick) 123 mg/dL (70-99) 114 mg/dL (70-99) 114 mg/dL (70-99) Test 08/06/18 20:32 08/07/18 06:05 Glucose (Fingerstick) 135 mg/dL (70-99) Hemoglobin 10.7 g/dL (13.0-17.5) Hematocrit 31.2 % (39.0-53.0) Mean Corpuscular Hemoglobin Concent 34 g/dL (31-37) Prothrombin Time 15.7 SEC (11.7-14.0) Prothromb Time International Ratio 1.3 (0.8-1.1) Laboratory Tests Test 08/06/18 10:10 08/06/18 11:04 08/06/18 17:01 08/06/18 20:32 Glucose (Fingerstick) 123 mg/dL (70-99) 114 mg/dL (70-99) 114 mg/dL (70-99) 135 mg/dL (70-99) Test 08/07/18 06:05 Hemoglobin 10.7 g/dL (13.0-17.5) Hematocrit 31.2 % (39.0-53.0) Mean Corpuscular Hemoglobin Concent 34 g/dL (31-37) Prothrombin Time 15.7 SEC (11.7-14.0) Prothromb Time International Ratio 1.3 (0.8-1.1) Notes He is awake alert and sitting in bed. Incisional wound VAC is in place with good seal. Normal motor and sensation are present in his lower extremities Assessment and Plan We will get him started on PT and OT. He will continue Coumadin. We will adjust his pain regimen as needed if necessary. ERAN THURSTON II, MD August 07, 2018 08:42
[2018-08-07] MEDS ORDERED: FUROSEMIDE 20 MG TABLET PO SCH (09:00)
[2018-08-07 11:00] VITALS: BP 113/56
[2018-08-07] MEDS ORDERED: ONDANSETRON PF 4 MG/2 ML VIAL. IV PRN (12:00)
[2018-08-07] MEDS ORDERED: ONDANSETRON ODT 4 MG TAB.RAPDIS. PO PRN (12:00)
--- NOTE | 2018-08-07 13:13 | NUR ---
Pharmacy Warfarin Dosing Note S:Pharmacy consulted to assist with anticoagulation therapy started 08/06/18 with target INR: 1.6 - 2.5 O:SHANA FARRELL W is a 72 year old M with GREGORY LABS: Last INR: 1.3 Last HGB: 10.7 Last HCT: 31.2 Last PLT: Last dose of 6 mg given on 08/06/18 at 1645 Previous Regimen: Vitamin K given: Drug Interaction Changes: Ongoing Drug Interactions: A:INR of 1.3 is below desired range. Target range for this patient is: 1.6 - 2.5 P: Warfarin dose: 5 mg Today at 1600 Bridge Therapy: Next INR due IN AM Pharmacy anticoagulation service will continue to follow. MAK RICHARDS [facility], 08/07/18 [id number]
[2018-08-07 15:00] VITALS: BP 127/63
[2018-08-07] MEDS ORDERED: WARFARIN 5 MG TABLET. PO ONE (16:00)
[2018-08-07] MEDS ORDERED: BISACODYL 10 MG SUPP.RECT. PR PRN (16:00)
[2018-08-07 19:35] VITALS: BP 112/51
[2018-08-07 23:22] VITALS: BP 117/51
[2018-08-08] MEDS: ACETAMINOPHEN 500 MG TABLET PO SCH ×3 (03:00→15:32)
[2018-08-08 03:47] VITALS: BP 115/60
[2018-08-08 05:29] LABS: HEMATOCRIT 29.9 % (39.0-53.0); HEMOGLOBIN 10.1 g/dL (13.0-17.5)
[2018-08-08 05:41] LABS: PROTHROMBIN TIME PATIENT 17.8 SEC (11.7-14.0)
[2018-08-08] MEDS: traMADol 50 MG TABLET PO SCH ×3 (05:48→12:24)
[2018-08-08 07:00] VITALS: BP 114/64
--- NOTE | 2018-08-08 07:49 | SNU/HH DC ---
DISCHARGE WITH HOME HEALTH DISCHARGE INFORMATION: Discharge Date: August 08, 2018 Final Diagnosis: R GREGORY Condition on Discharge: Stable CODE STATUS: Code Status: Full HOME HEALTH: Face to Face: I certify this patient is under my care and that I, or a nurse practitioner or physician's captain assistant working with me, had a face to face encounter that meets the physician face to face encounter requirements with this patient on []. Medical Complications: S/P Joint Replacement Long-Term For: Admin/Educate Injections RN For Eval/Treatment: Yes (PT/INR draws) Physical Therapy For: Evalulation/Treatment Occupational Therapy For: Evaluation/Treatment Pt Meets Homebound Status: Poor coordination w/ amb., Unsteady balance w/ amb, POST DISCHARGE ORDERS: Activity Instructions for Disc: Activity as tolerated Weight Bearing Status after Di: Full weight bearing Bathing Instructions: Shower-keep dressing dry, No Tub Bath until see Wound/Incision Care: Ice to area for comfort, Keep wound/cast CDI, Keep wound elevated Other wound/incision instructi: leave dressing in place CHECKS AFTER DISCHARGE: Checks after discharge: Check blood sugar, ac/hs FOLLOW-UP: Follow up with: Joselin in 2 wks Warfarin Follow UP: Pharmacy TREATMENT/EQUIPMENT ORDERS: Adaptive Equipment Issued: None CERTIFICATION STATEMENT: Certification Statement: Certification Statement: Based on the above finding, I certify that this patient is confined to the home and needs intermittent mcc care, physical therapy and/or speech therapy, or continues to need occupational therapy.~ This patient is under my care, and I have initiated the establishment of the plan of care.~ This patient will be followed by myself or a community physician who will periodically review the plan of care. Home Meds Reported Medications Ergocalciferol (Vitamin D2) (VITAMIN D2) 50,000 Unit Capsule, 57950 UNIT PO Q4WK for VITAMIN , CAP 07/23/18 Potassium Chloride (K-TAB) 10 Meq Tablet.er, 10 MEQ PO DAILY, TAB.SR 12/02/16 Testosterone Cypionate (TESTOSTERONE CYPIONATE) 200 Mg/1 Ml Vial, 200 MG IM Q4WK, EACH 12/02/16 Furosemide (LASIX) 20 Mg Tablet, 20 MG PO QODAY for SWELLING , TAB 12/02/16 Carbidopa/Levodopa (SINEMET 25-100 MG TABLET) 1 Each Tablet, 50-200 MG PO TID, TAB 06/19/15 Metformin Hcl (METFORMIN HCL) 500 Mg Tablet, 1 TAB PO BID, #60 TAB 3 Refills 06/19/15 ERAN THURSTON II, MD August 08, 2018 07:49
[2018-08-08] MEDS: FERROUS SULFATE 325 MG TABLET. PO SCH (08:25)
[2018-08-08] MEDS: SENNOSIDES/DOCUSATE 8.6/50MG TABLET. PO SCH (08:25)
[2018-08-08] MEDS: POTASSIUM CHLORIDE 10 MEQ TABLET.ER. PO SCH (08:25)
[2018-08-08] MEDS: metFORMIN 500 MG TABLET PO SCH (08:26)
[2018-08-08] MEDS: MULTIVITAMIN with MINERAL TABLET. PO SCH (08:26)
[2018-08-08] MEDS: CARBIDOPA/LEVODOPA 25/100MG TABLET PO SCH ×2 (08:26→13:35)
--- NOTE | 2018-08-08 09:20 | PDOC ---
ORTHO PROGRESS NOTES Subjective His pain is tolerable. Positive flatus. No other complaints. Vitals Vital Signs Date Time Temp Pulse Resp B/P (MAP) Pulse Ox O2 Delivery O2 Flow Rate FiO2 08/08/18 07:01 16 Room Air 08/08/18 07:00 98.3 86 114/64 (81) 98 98.3 Labs Laboratory Tests Test 08/06/18 10:10 08/06/18 11:04 08/06/18 17:01 08/06/18 20:32 Glucose (Fingerstick) 123 mg/dL (70-99) 114 mg/dL (70-99) 114 mg/dL (70-99) 135 mg/dL (70-99) Test 08/07/18 06:05 08/07/18 07:26 08/07/18 11:16 08/07/18 16:53 Hemoglobin 10.7 g/dL (13.0-17.5) Hematocrit 31.2 % (39.0-53.0) Mean Corpuscular Hemoglobin Concent 34 g/dL (31-37) Prothrombin Time 15.7 SEC (11.7-14.0) Prothromb Time International Ratio 1.3 (0.8-1.1) Glucose (Fingerstick) 84 mg/dL (70-99) 98 mg/dL (70-99) 120 mg/dL (70-99) Test 08/07/18 21:13 08/08/18 04:38 Glucose (Fingerstick) 93 mg/dL (70-99) Hemoglobin 10.1 g/dL (13.0-17.5) Hematocrit 29.9 % (39.0-53.0) Mean Corpuscular Hemoglobin Concent 34 g/dL (31-37) Prothrombin Time 17.8 SEC (11.7-14.0) Prothromb Time International Ratio 1.5 (0.8-1.1) Laboratory Tests Test 08/07/18 11:16 08/07/18 16:53 08/07/18 21:13 08/08/18 04:38 Glucose (Fingerstick) 98 mg/dL (70-99) 120 mg/dL (70-99) 93 mg/dL (70-99) Hemoglobin 10.1 g/dL (13.0-17.5) Hematocrit 29.9 % (39.0-53.0) Mean Corpuscular Hemoglobin Concent 34 g/dL (31-37) Prothrombin Time 17.8 SEC (11.7-14.0) Prothromb Time International Ratio 1.5 (0.8-1.1) Notes He is awake and alert and lying in bed. Dressing is intact. Normal motor and sensation are present in his operative extremity Assessment and Plan He is asking to go home today. He tells me he has family at home that can help out, the same as last time. We will see how he does with physical therapy, I am okay if he is able to do some stairs with PT, he could go home later today. ERAN THURSTON II, MD August 08, 2018 09:20
--- NOTE | 2018-08-08 09:22 | NUR ---
Pharmacy Warfarin Dosing Note S:Pharmacy consulted to assist with anticoagulation therapy started 08/06/18 with target INR: 1.6 - 2.5 O:SHANA FARRELL is a 72 year old M with GREGORY LABS: Last INR: 1.3 Last HGB: 10.7 Last HCT: 31.2 Last PLT: Last dose of 6 mg given on 08/06/18 at 1645 Previous Regimen: Vitamin K given: Drug Interaction Changes: Ongoing Drug Interactions: A:INR of 1.3 is below desired range. Target range for this patient is: 1.6 - 2.5 P: Warfarin dose: 5 mg Today at 1400 Bridge Therapy: none Next INR due Monday Pharmacy anticoagulation service will continue to follow. Anibal Calvert RPH, 08/08/18 0922 Addendum: 08/08/18 at 0931 by Anibal Calvert RPH PHA This not is incorrect. It has yesterdays information.
--- NOTE | 2018-08-08 09:35 | NUR ---
Pharmacy Warfarin Dosing Note S:Pharmacy consulted to assist with anticoagulation therapy started 08/06/18 with target INR: 1.6 - 2.5 O:SHANA FARRELL is a 72 year old M with GREGORY LABS: Last INR: 1.5 Last HGB: 10.1 Last HCT: 29.9 Last PLT: Last dose of 5 mg given on 08/07/18 at 1553 Previous Regimen: Vitamin K given: N Drug Interaction Changes: Ongoing Drug Interactions: A:INR of 1.5 is below desired range. Target range for this patient is: 1.6 - 2.5 P: Warfarin dose: 3 mg Today at 1400 Bridge Therapy: None Next INR due Monday as outpatient. Pharmacy anticoagulation service will continue to follow. Anibal Calvert Mary, 08/08/18 1798
[2018-08-08] MEDS ORDERED: WARF3TAB50 PO (10:54)
[2018-08-08] MEDS ORDERED: FERR325T14 PO (10:54)
[2018-08-08 11:00] VITALS: BP 120/62
[2018-08-08] MEDS ORDERED: WARFARIN 3 MG TABLET. PO ONE (14:00)
[2018-08-08 15:00] VITALS: BP 97/52
--- NOTE | 2018-08-08 16:06 | PATHOLOGY ---
[facility] Accession Number: [id number] . 01 Material submitted: . hip - RIGHT HIP BONE. Modifiers: right . 01 Clinician provided ICD-10: y . 01 Clinical history: . Degenerative joint disease . 02 Diagnosis: Femoral head and separate segments of bone and soft tissue, right total hip arthroplasty: - Advanced degenerative arthritis with focal subarticular cystic degeneration. . (JPM:mml; 08/08/2018) QLM/08/08/2018 . 02 Electronically signed: . Agustin Dasilva MD, Pathologist NPI- [id number] . 01 Gross description: . Received in formalin, labeled" Lucio Reyes, right hip bone ", is a femoral head (4.5 cm diameter x 5.2 cm height) with femoral neck (1.8 cm length and 5.5 x 3.2 cm maximum diameter). The articular surface is pitted, mcdonald and granular with the cartilage measuring up to 0.3 cm thick and marked thin. Extensive eburnation and peripheral osteophytes are present. The subchondral bone is yellow, with porous bony trabeculae. There is focal subarticular cystic change present. The neck margin excision is smooth and the exposed trabecular bone is spongy and yellow and is inked blue. Also received are multiple irregular fragment of hemorrhagic bone and eaton-white fibrous tissue approximately measuring 2.5 x 2.0 x 0.8 cm in aggregate. Risk Management Specialist sections submitted as follows after decalcification: A1. Femoral head, articular surface, showing eburnation and subarticular cyst A2. Femoral neck margin inked blue and additional bone and fibrous tissue (SWS; 08/06/2018) SHS/SHS . 02 Pathologist provided ICD-10: M16.11 . 02 CPT . 952504, [id number] Specimen Comment: A courtesy copy of this report has been sent to Specimen Comment: [phone], . Specimen Comment: Report sent to / DR HADDAD Performed at: 01 [facility] [address], [place] [id number] MD Layton Curtis MD Phone: [phone] Performed at: 02 [facility] [address] [place], [place] [id number] MD Agustin Dasilva MD Phone: [phone]
--- NOTE | 2018-08-08 17:42 | NUR ---
Pt discharged home with home health. GREGORIA Blake provided pt discharge instructions. Pt assisted to wheelchair and was secured in vehicle with .
--- NOTE | 2018-08-09 08:20 | PDOC3 ---
Discharge Summary Visit Information Date of Admission: August 06, 2018 Date of Discharge: August 08, 2018 Admitting Diagnosis: advanced right hip primary degenerative joint disease Brief Hospital Course Allergies Allergies Coded Allergies Type Severity Reaction Last Updated Verified No Known Drug Allergies 08/06/18 No Vital Signs Vital Signs Date Time Temp Pulse Resp B/P (MAP) Pulse Ox O2 Delivery O2 Flow Rate FiO2 08/08/18 15:00 98.2 78 18 97/52 (67) 97 Room Air 98.2 Lab Results Laboratory Tests Test 08/07/18 11:16 08/07/18 16:53 08/07/18 21:13 08/08/18 04:38 Glucose (Fingerstick) 98 mg/dL (70-99) 120 mg/dL (70-99) 93 mg/dL (70-99) Hemoglobin 10.1 g/dL (13.0-17.5) Hematocrit 29.9 % (39.0-53.0) Mean Corpuscular Hemoglobin Concent 34 g/dL (31-37) Prothrombin Time 17.8 SEC (11.7-14.0) Prothromb Time International Ratio 1.5 (0.8-1.1) Brief Hospital Course Mr. Reyes is a 72 old male who presented to my outpatient orthopedic surgery clinic with complaints of severe and progressive pain that failed conservative therapies including injections. We had a discussion of the risks, benefits, alternatives to total hip arthroplasty and he elected to proceed. He tolerated surgery well cover well from anesthesia in the PACU. He was then taken to the joint Center for care and observation. He did receive PT, OT, DVT and antibiotic prophylaxis. He recovered well from surgery and remained hemodynamically stable and afebrile throughout the hospitalization. Pain was controlled on oral pain medicine at the time of discharge. Good progress was made with therapy throughout the hospitalization, and activities of daily living were accomplished by the patient. The incision was clean dry and intact and the operative extremity had normal motor and sensation. Discharge Information Condition at Discharge: Stable Follow Up: Weeks Disposition/Orders: D/C to Home w/ HH Scheduled Carbidopa/Levodopa (Sinemet 25-100 Mg Tablet) 1 Each Tablet, 50-200 MG PO TID, (Reported) Entered as Reported by: BERENICE DUMONT on 06/19/15 0905 Last Taken: Unknown Dose on 08/06/18 0500 Last Action: Continued on 08/06/18733 by SARA THURSTON MD Ergocalciferol (Vitamin D2) (Vitamin D2) 50,000 Unit Capsule, 50,000 UNIT PO Q4WK for VITAMIN , (Reported) Entered as Reported by: CHRISTINA SHARP on 07/23/18 151 Last Taken: Unknown Dose on 07/20/18 Last Action: Continued on 08/06/18733 by SARA THURSTON MD Ferrous Sulfate (Ferrous Sulfate) 325 Mg Tablet, 1 TAB PO DAILY for supplement , #14 Ref 0 (Reported) Entered as Reported by: VIVIAN JHAVERI on 08/08/181053 Furosemide (Lasix) 20 Mg Tablet, 20 MG PO QODAY for SWELLING , (Reported) Entered as Reported by: MEENU RENEE on 12/02/161735 Last Taken: Unknown Dose on 08/05/18 Last Action: Continued on 08/06/18733 by SARA THURSTON MD Metformin Hcl (Metformin Hcl) 500 Mg Tablet, 1 TAB PO BID, #60 Ref 3 (Reported) Entered as Reported by: BERENICE DUMONT on 06/19/15 0904 Last Taken: Unknown Dose on 08/05/18 Last Action: Converted on 08/06/18733 by SARA THURSTON MD Potassium Chloride (K-Tab) 10 Meq Tablet.er, 10 MEQ PO DAILY, (Reported) Entered as Reported by: MEENU RENEE on 12/02/161735 Last Taken: Unknown Dose on 08/05/18 Last Action: Converted on 08/06/18 0 734 by SARA THURSTON MD Testosterone Cypionate (Testosterone Cypionate) 200 Mg/1 Ml Vial, 200 MG IM Q4WK, (Reported) Entered as Reported by: MEENU RENEE on 12/02/161735 Last Taken: Unknown Dose on 07/20/18 Last Action: Converted on 08/06/18733 by SARA THURSTON MD Warfarin Sodium (Warfarin Sodium) 3 Mg Tablet, 3 MG PO DAILY for blood thinner, #45 Ref 0 (Reported) Entered as Reported by: VIVIAN JHAVERI on 08/08/181053 Patient Instructions Patient Instructions He will be discharged home. Home health care has been set up. We will get him started on outpatient therapy as soon as we are able. The patient will be on Coumadin for a month. He can weight-bear as tolerated. Worrisome signs and symptoms that should prompt a phone call to my office were discussed. We'll see him back in 2 weeks, sooner should a problem arise. ERAN THURSTON II, MD August 09, 2018 08:20
[2018-08-20] MEDS ORDERED: ERGOCALCIFEROL (VITAMIN D2) 50,000 UNIT CAPSULE. PO SCH (09:00)
== END 2018-08-08 17:30 | disposition home health service (06) | DRG 470 ==
LOC: OPSVCIP 05:47 → 4 NORTH 10:45
PROVIDERS: ADMIT Orthopaedic Surgery Sports Medicine; ATTEND Orthopaedic Surgery Sports Medicine
PROC: 0SR906Z Replacement of Right Hip Joint with Oxidized Zirconium on Polyethylene Synthetic Substitute, Open Approach (ICD-10-PCS; principal; 2018-08-06 07:30)
DX: M16.11 Unilateral primary osteoarthritis, right hip (principal); Z79.01 Long term (current) use of anticoagulants
CPT/HCPCS: 36415; 72170; 82962; 85014; 85018; 85610; 85730; 86850; 86900; 86901; 88304; 88311; A7015; C1713; J0171; J0696; J1100; J1885; J2001; J2250; J2270; J2405; J2704; J2710; J2795; J3010; J3490; J7030; J7120; 97110; 97116; 97150; 97530; 97535

== ENCOUNTER 2021-05-11 19:51 | Emergency (ER) | payer MEDICARE, OTHER ==
[~2021-05-11] VITALS: Ht 177.8 cm; Wt 78.2 kg
[~2021-05-11 19:51] MED LIST changes: +CARB-183 PO; -CARB1TAB2 PO; +FERR325T14 PO; +WARF3TAB50 PO
[2021-05-11] MEDS ORDERED: ACETAMINOPHEN 500 MG TABLET PO ONE (20:15)
--- NOTE | 2021-05-11 20:37 | PHYS DOC ---
Past Medical History Smoking Status: Former Smoker Adult General Chief Complaint Chief Complaint: MECHANICAL FALL HPI HPI The patient is a 75-year-old male with a history of Parkinson's disease and raf-ekienjw-kucwwtpqk diabetes. He is not on a blood thinner. He does have fairly frequent falls due to his Parkinson's disease and lymphedema. Mr. Reyes presents for evaluation of a mechanical trip and fall occurring a couple of hours prior to arrival at home. He got up from the couch, his cane caught on something and he fell over into a stereo cabinet. The glass fronting the stereo cabinet broke. He sustained what appeared to be superficial injuries to his scalp which were initially bleeding fairly profusely per report but are now hemostatic. No loss of consciousness, vomiting or change in level of consciousness. Patient endorses mild discomfort to his head and to his right shoulder which she states he also struck. He denies pain anywhere else. He states he was feeling well earlier today and confirms that he is at his baseline and was feeling well before the fall. Tetanus not up-to-date. Vital signs are appropriate here. Review of Systems Review of Systems A 12 point review of systems was completed and was negative except where noted in HPI above. Current Medications Current Medications Current Medications Medications (Trade) Dose Ordered Sig/Alverto Start Time Stop Time Status Last Admin Dose Admin Acetaminophen (Tylenol) 1,000 mg 1X ONCE 05/11/21 20:15 05/11/21 20:32 DC 05/11/21 20:39 1,000 MG Allergies Allergies Allergies Coded Allergies Type Severity Reaction Last Updated Verified No Known Drug Allergies 08/06/18 No Physical Exam Physical Exam Elderly black male appearing nontoxic and in no acute distress. Head is normocephalic and with punctate 0.5 cm abrasion to the superior scalp, approximately 1 cm area of abrasion or laceration with matted blood noted posterior to the left ear, and no other signs of trauma seen to the head or scalp or face or neck. No hemotympanum bilaterally. No signs basilar fracture. Neck is supple and nontender. Oropharynx is moist. Lungs are clear to auscultation at all stations. There is a normal S1 and S2 without rubs or gallops and capillary refill is appropriate, less than 2 seconds globally. Abdomen is soft, nontender and nondistended. Skin is warm and dry without cyanosis, clubbing or edema. Psychiatrically, the patient demonstrates appropriate mood and affect and is alert. Neurologically, patient moves all extremities equally, is alert and oriented x4 no lateralizing deficits are seen. Evaluation of the extremities reveals BUEs and BLEs neurovascularly intact distally with strength 5/5, sensation intact light touch in all nerve distributions, radial, DP and PT pulses 2+ and equal bilaterally, capillary refill less than 2 seconds, hands and feet warm and well-perfused. 2+ pitting peripheral edema, symmetric, to both legs below the level of the knees, chronic and baseline per patient and his . No calf tenderness or swelling bilaterally. Homans test is negative bilaterally. Current Patient Data Vital Signs Vital Signs Date Time Temp Pulse Resp B/P (MAP) Pulse Ox O2 Delivery O2 Flow Rate FiO2 05/11/21 20:46 74 16 146/68 (94) 98 Room Air 05/11/21 20:00 98.0 98.0 EKG EKG [] Radiology/Procedures Radiology/Procedures EXAM: RIGHT SHOULDER 3 VIEWS. HISTORY: Fall, pain. COMPARISON: None. FINDINGS: No fractures are identified. There is superior subluxation of the humeral head with narrowing of the subacromial space. 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 Inferiorly directed clavicular spurs measure up to 3 mm. The glenohumeral joint space is not profiled but appears mostly preserved. There are atherosclerotic calcifications of the aorta. IMPRESSION: 1. Rotator cuff arthropathy. No fracture. Electronically signed by: Nimisha Negrete MD (05/11/2021 9:26 PM) [id number] DICTATED and SIGNED BY: MELODY NEGRETE MD DATE: 05/11/21 [id number] EXAM: 1. CT HEAD WITHOUT CONTRAST. 2. CT CERVICAL SPINE WITHOUT CONTRAST. HISTORY: Fall, head injury, pain. TECHNIQUE: Computed tomography of the head and cervical spine was performed without intravenous contrast. One or more of the following individualized dose reduction techniques were utilized for this examination: 1. Automated exposure control. 2. Adjustment of the mA and/or kV according to patient size. 3. Use of iterative reconstruction technique. COMPARISON: None. FINDINGS: There is no intracranial hemorrhage. Hypoattenuation within the periventricular white matter indicates mild chronic microangiopathic change. Prominence of the lateral ventricles and hemispheric sulci indicates mild atrophy. The visualized paranasal sinuses appear clear. The orbits are unremarkable. The temporal bones are unremarkable. The calvarium reveals no suspicious lesions. There are atherosclerotic calcifications of the internal carotid arteries. Alignment is maintained. There is moderate osteoarthritis at C1/2. No fractures are identified. Degenerative disc disease is severe at C3-4 and C5-6 and mild at C2-3. There is no prevertebral soft tissue swelling. At C2-3, there is a moderate posterior disc bulge. Uncovertebral osteoarthritis is moderate bilaterally. Neural foraminal stenosis is moderate to severe bilaterally. At C3-4, there is a moderate posterior disc-osteophyte complex. Central canal stenosis is mild. Uncovertebral osteoarthritis is moderate to severe on the right and moderate on the left. Neural foraminal stenosis is severe on the right and moderate to severe on the left. At C4-5, there is a small posterior disc bulge. Uncovertebral osteoarthritis is mild bilaterally. There is no clear stenosis. At C5-6, there is a moderate posterior disc-osteophyte complex. Central canal stenosis is mild with more severe right lateral recess stenosis. Uncovertebral osteoarthritis is moderate to severe on the right and moderate on the left. Neural foraminal stenosis is moderate to severe on the right and moderate on the left. At C6-7, there is a moderate posterior disc bulge versus small central protrusion. There is no clear stenosis. IMPRESSION: 1. No acute intracranial findings. 2. 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 3. No cervical fracture or acute malalignment. 4. Moderate to severe cervical degenerative changes result in multilevel bilateral moderate to severe neural foraminal stenosis and mild central canal stenosis as above. Electronically signed by: Nimisha Negrete MD (05/11/2021 9:59 PM) [facility] DICTATED and SIGNED BY: MELODY NEGRETE MD DATE: 05/11/21 [id number] Course & Med Decision Making Course & Med Decision Making Nontoxic-appearing elderly gentleman, not on blood thinners here for evaluation of a mechanical trip and fall with a head strike. Will copiously wash and disinfect head wounds, will obtain imaging as noted and will then reevaluate. Will update tetanus and treat pain. 2021: Patient is resting comfortably in no acute distress on serial reassessments. Head wounds have been washed out and disinfected and on close inspection do not require any wound closure as both are very superficial abrasions. Will apply dressings to the sites. Imaging nonacute. Patient at his baseline neuro cognitively. Ambulatory with a careful, slow gait here in the emergency department which family report is his baseline. Will discharge home to follow-up closely with primary care in the next 2 to 4 days. Have counseled family to seek guidance regarding next steps with respect to difficulty with falls recently. Tylenol as needed for any discomfort. Patient and his family understand that if he feels worse instead of better or develops other new symptoms of concern that he should return to the emergency department immediately for reevaluation. All questions are answered. Dragon Disclaimer Dragon Disclaimer This electronic medical record was generated, in whole or in part, using a voice recognition dictation system. Departure Departure Impression: Primary Impression: Fall on same level from slipping, tripping and stumbling with subsequent stri rukhsana against furniture, initial encounter Additional Impression: Abrasion of scalp, initial encounter Disposition: 01 HOME / SELF CARE / HOMELESS Condition: IMPROVED Referrals: NEREIDA HADDAD MD (PCP) Patient Instructions: Fall Prevention and Home Safety Additional Instructions: Follow-up very closely with your primary care doctor in the office in the next 2 to 4 days for a reevaluation of your symptoms and a discussion of next best steps in care. You may take a 500 mg extra strength Tylenol every 6 hours as needed for any discomfort. Return to the emergency department right away for worsening symptoms of any kind or for any other new symptoms of concern. Problem Qualifiers MONIQUE CORDOBA MD May 11, 2021 20:37
--- NOTE | 2021-05-11 21:28 | RAD ---
EXAM: RIGHT SHOULDER 3 VIEWS. HISTORY: Fall, pain. COMPARISON: None. FINDINGS: No fractures are identified. There is superior subluxation of the humeral head with narrowi ng of the subacromial space. 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 In feriorly directed clavicular spurs measure up to 3 mm. The glenohumeral joint space is not profiled b ut appears mostly preserved. There are atherosclerotic calcifications of the aorta. IMPRESSION: 1. Rotator cuff arthropathy. No fracture. Electronically signed by: Nimisha Negrete MD (05/11/2021 9:26 PM) [id number]
[2021-05-11 21:50] VITALS: BP 136/72
--- NOTE | 2021-05-11 22:01 | RAD ---
EXAM: 1. CT HEAD WITHOUT CONTRAST. 2. CT CERVICAL SPINE WITHOUT CONTRAST. HISTORY: Fall, head injury, pain. TECHNIQUE: Computed tomography of the head and cervical spine was performed without intravenous contr ast. One or more of the following individualized dose reduction techniques were utilized for this exa mination: 1. Automated exposure control. 2. Adjustment of the mA and/or kV according to patient size. 3. Use of iterative reconstruction technique. COMPARISON: None. FINDINGS: There is no intracranial hemorrhage. Hypoattenuation within the periventricular white vibha er indicates mild chronic microangiopathic change. Prominence of the lateral ventricles and hemispher ic sulci indicates mild atrophy. The visualized paranasal sinuses appear clear. The orbits are unremarkable. The temporal bones are un remarkable. The calvarium reveals no suspicious lesions. There are atherosclerotic calcifications of the internal carotid arteries. Alignment is maintained. There is moderate osteoarthritis at C1/2. No fractures are identified. 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 There is no prevertebral soft tissu e swelling. At C2-3, there is a moderate posterior disc bulge. Uncovertebral osteoarthritis is moderate bilateral ly. Neural foraminal stenosis is moderate to severe bilaterally. At C3-4, there is a moderate posterior disc-osteophyte complex. Central canal stenosis is mild. Uncov ertebral osteoarthritis is moderate to severe on the right and moderate on the left. Neural foraminal stenosis is severe on the right and moderate to severe on the left. At C4-5, there is a small posterior disc bulge. Uncovertebral osteoarthritis is mild bilaterally. The re is no clear stenosis. At C5-6, there is a moderate posterior disc-osteophyte complex. Central canal stenosis is mild with m ore severe right lateral recess stenosis. Uncovertebral osteoarthritis is moderate to severe on the r ight and moderate on the left. Neural foraminal stenosis is moderate to severe on the right and moder ate on the left. At C6-7, there is a moderate posterior disc bulge versus small central protrusion. There is no clear stenosis. IMPRESSION: 1. No acute intracranial findings. 2. 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 3. No cervical fracture or acute malalignment. 4. Moderate to severe cervical degenerative changes result in multilevel bilateral moderate to severe neural foraminal stenosis and mild central canal stenosis as above. Electronically signed by: Nimisha Negrete MD (05/11/2021 9:59 PM) [facility]
== END 2021-05-11 22:50 | disposition home or self-care (01) ==
LOC: ER 19:51
DX: S00.01XA Abrasion of scalp, initial encounter (principal); G20 Parkinson's disease; E11.9 Type 2 diabetes mellitus without complications; Z87.891 Personal history of nicotine dependence; W01.198A Fall on same level from slipping, tripping and stumbling with subsequent striking against other object, initial encounter; Y93.89 Activity, other specified; Y92.89 Other specified places as the place of occurrence of the external cause; Y99.8 Other external cause status
CPT/HCPCS: 70450; 72125; 73030; 99284-25